=== PATIENT | male | born 1950 | race Caucasian/White ===

== ENCOUNTER 2025-02-21 21:37 | Emergency (ER) | payer OTHER ==
[2025-02-21 21:43] VITALS: RESP 18; TEMP 98.1; BMI 26.5
[2025-02-22 00:57] VITALS: BP 142/64; PULSE 63
== END 2025-02-22 02:36 | disposition left against medical advice (07) ==
LOC: JER 21:37 → JERFT 21:37 → JER 02-22 02:36
DX: R07.9 Chest pain, unspecified (principal); V43.52XA Car driver injured in collision with other type car in traffic accident, initial encounter; Y92.410 Unspecified street and highway as the place of occurrence of the external cause
CPT/HCPCS: 70450-TC; 71046-TC-FY; 71101-TC-LT-FY; 72125-TC; 72170-TC-FY; 93005; 93010; 99285-25